=== PATIENT | female | born 1970 | race Asian ===

== ENCOUNTER 2019-07-25 15:36 | Outpatient (CLI) | payer OTHER | END 2019-07-25 19:30 | disposition home or self-care (01) | LOC: MAMMO 15:36 | DX: Z12.31 Encounter for screening mammogram for malignant neoplasm of breast (principal) ==

== ENCOUNTER 2021-09-05 10:29 | Outpatient (CLI) | payer OTHER ==
[2021-09-05 10:58] LABS: POTASSIUM 3.1 mmol/L (3.6-5.2)
== END 2021-09-05 18:58 | disposition home or self-care (01) ==
LOC: LAB 10:29
PROVIDERS: ATTEND Nurse Practitioner Family
DX: E87.6 Hypokalemia (principal)
CPT/HCPCS: 80053